=== PATIENT | female | born 1970 | race Caucasian/White ===

== ENCOUNTER 2021-08-07 04:18 | Day surgery (SDC) | payer OTHER ==
[2021-08-05 17:54] VITALS: BMI 29.1
[2021-08-07] MEDS ORDERED: LIDOCAINE HCL/PF 2% SDV 5ML VIAL ONE (07:26)
[2021-08-07] MEDS ORDERED: DEXAMETHASONE SOD PHOSPHATE 4 MG/1 ML VIAL ONE (07:26)
[2021-08-07] MEDS ORDERED: MIDAZOLAM HCL 2 MG/2 ML SINGLE DOSE VIAL ONE (07:27)
[2021-08-07] MEDS ORDERED: PROPOFOL 20 ML ONE (07:27)
[2021-08-07] MEDS ORDERED: CLINDAMYCIN IVPB ONE (07:29)
[2021-08-07] MEDS ORDERED: DEXTROSE 5% IVPB ONE (07:29)
[2021-08-07] MEDS ORDERED: WATER IVPB ONE (07:29)
[2021-08-07] MEDS ORDERED: CLINDAMYCIN 600 MG PREMIX BAG IVPB ONE (07:45)
[2021-08-07] MEDS ORDERED: CLINDAMYCIN PHOSPHATE 600 MG/4 ML VIAL ONE (07:46)
[2021-08-07] MEDS ORDERED: ONDANSETRON 4 MG/2 ML VIAL IVPUSH PRN (08:05)
[2021-08-07] MEDS ORDERED: oxyCODONE HCL 5 MG TABLET PO PRN ×2 (08:05→08:32)
[2021-08-07] MEDS ORDERED: LACTATED RINGERS SOLUTION 1,000 ML IV SCH (08:15)
[2021-08-07] MEDS ORDERED: KETOROLAC TROMETHAMINE 30 MG/1 ML VIAL ONE (08:17)
[2021-08-07] MEDS ORDERED: IBUPROFEN 400 MG TABLET (FP) PO PRN (08:32)
[2021-08-07] MEDS ORDERED: ACETAMINOPHEN 325 MG TABLET (FP) PO PRN (08:32)
[2021-08-07] MEDS ORDERED: oxyCODONE HCL 5 MG TABLET ONE (10:34)
[2021-08-07 11:14] VITALS: BP 137/78; PULSE 77; TEMP 97.9
== END 2021-08-07 11:25 | disposition home or self-care (01) ==
LOC: JASU-SURG 04:18
PROVIDERS: ATTEND Obstetrics & Gynecology
PROC: 0U5B8ZZ Destruction of Endometrium, Via Natural or Artificial Opening Endoscopic (ICD-10-PCS; principal; 2021-08-07 07:30)
PROC: 0UDB7ZX Extraction of Endometrium, Via Natural or Artificial Opening, Diagnostic (ICD-10-PCS; 2021-08-07 07:30)
DX: N92.0 Excessive and frequent menstruation with regular cycle (principal); D25.0 Submucous leiomyoma of uterus
CPT/HCPCS: 88305-TC; 94760